=== PATIENT | male | born 1955 | race Caucasian/White ===

== ENCOUNTER 2020-02-15 13:32 | Inpatient (IN) | payer MEDICAID ==
[2020-02-15] VITALS (24 sets, daily range): BP systolic 139–209; BP diastolic 81–125
[~2020-02-15] VITALS: Ht 177.8 cm; Wt 211.8 kg
[~2020-02-15 13:32] MED LIST: ALBUAER3 IN; ALLO100T PO; ASP81EC PO; ATOR20TA50 PO; BACL10TA PO; CAR125T PO; FURO1TAB31 PO; HYDR-4296 PO; HYDR-531 PO; IPRASOL41 IN; ISOS10TA2 PO; LOS25T PO; METF-370 PO; OMEP20TA PO; POTA-220 PO
[2020-02-15] MEDS ORDERED: NITROGLYCERIN 0.4 MG SL TAB SL ONE ×3 (13:42→14:00)
[2020-02-15] MEDS ORDERED: FUROSEMIDE 20 MG/2 ML VIAL ONE (13:42)
[2020-02-15] MEDS ORDERED: FUROSEMIDE 40 MG/4 ML VIAL IV ONE ×2 (13:45→14:00)
[2020-02-15] MEDS ORDERED: methylPREDNISolone SOD SUCC 125 MG/2 ML VL ONE (13:46)
[2020-02-15] MEDS ORDERED: methylPREDNISolone SOD SUCC 125 MG/2 ML VL IV ONE ×2 (14:00)
[2020-02-15] MEDS ORDERED: NITROGLYCERIN 50MG/250ML 250 ML IV ONE (14:15)
[2020-02-15 14:17] LABS: Basophils # (auto) 0 10 ^3/uL (0-0.2); Basophils % (auto) 0.4 % (0.0-2.0); Eosinophils # (auto) 0 10 ^3/uL (0-0.8); Eosinophils % (auto) 0.4 % (0.0-7.0); Hemoglobin 15.8 g/dL (13.5-17.5); Lymphocytes # (auto) 1.1 10 ^3/uL (0.4-5.4); Lymphocytes % (auto) 13.4 % (10.0-50.0); Mean Corpuscular Hemoglobin 28.2 pg (28.0-32.0); Mean Corpuscular Hgb Conc. 32.2 g/dL (32.0-36.0); Mean Corpuscular Volume 87.7 fL (80.0-100.0); Monocytes # (auto) 0.2 10 ^3/uL (0-1.3); Monocytes % (auto) 2.1 % (0.0-12.0); Neutrophils # (auto) 7.1 10 ^3/uL (1.6-8.6); Neutrophils % (auto) 83.7 % (37.0-80.0); Nucleated Red Blood Cells % 0.1 %; Platelet Count (auto) 206 10^3/uL (140-450); Red Blood Cells 5.58 10^6/uL (4.5-5.90); Red Cell Distribution Width 15.4 % (11.8-14.3); White Blood Cell 8.4 10^3/uL (4.4-10.8)
[2020-02-15 14:32] LABS: Urine Bacteria NONE SEEN /hpf (None Seen); Urine Blood TRACE /uL (Negative); Urine Specific Gravity 1.011 (1.001-1.035); Urine WBC 5 /hpf (0 - 3)
[2020-02-15 14:39] LABS: Alanine Aminotransferase 16 U/L (16-61); Albumin 3.5 g/dL (3.4-5.0); Anion Gap 4 (5-15); Aspartate Aminotransferase 15 U/L (15-37); BUN/Creatinine Ratio 15.8; Blood Urea Nitrogen 19 mg/dL (7-18); Carbon Dioxide 31 mmol/L (21-32); Chloride 101 mmol/L (98-107); GFR African American 79 mL/min; GFR Non-African American 65 mL/min; Glucose 157 mg/dL (74-106); Potassium 4.2 mmol/L (3.5-5.1); Sodium 136 mmol/L (136-145)
[2020-02-15 14:44] LABS: Alkaline Phosphatase 107 U/L (45-117); Bilirubin, Total 0.9 mg/dL (0.2-1.0); Total Protein 8.1 g/dL (6.4-8.2)
[2020-02-15] MEDS ORDERED: ACETAMINOPHEN 500 MG TAB PO PRN ×3 (15:15→17:45)
[2020-02-15] MEDS ORDERED: ONDANSETRON HCL 4 MG/2 ML VIAL IV PRN (15:15)
[2020-02-15] MEDS ORDERED: HYDROcodone-ACET 5/325MG TAB PO PRN (15:15)
[2020-02-15] MEDS ORDERED: NIFEdipine ER 30 MG TAB PO ONE (15:15)
[2020-02-15] MEDS ORDERED: NITROGLYCERIN 0.4 MG SL TAB SL PRN (15:15)
[2020-02-15] MEDS ORDERED: MORPHINE SULF INJ 2 MG/ML SYRINGE 1ML IV PRN (15:15)
[2020-02-15] MEDS: MORPHINE SULF INJ 2 MG/ML SYRINGE 1ML IV PRN (16:08)
[2020-02-15 17:19] LABS: CRP High Sensitivity 0.83 mg/dL (< 0.3)
[2020-02-15] MEDS ORDERED: ISOSORBIDE DINITRATE 10 MG TAB PO SCH (18:00)
[2020-02-15] MEDS ORDERED: FUROSEMIDE 40 MG/4 ML VIAL IV SCH (18:00)
[2020-02-15] MEDS ORDERED: CARVEDILOL 12.5 MG TAB PO SCH (18:00)
[2020-02-15] MEDS: HYDROcodone-ACET 10/325MG TAB PO SCH ×2 (19:40→22:00)
[2020-02-15] MEDS: CARVEDILOL 12.5 MG TAB PO SCH (20:36)
[2020-02-15 21:30] LABS: BUN/Creatinine Ratio 16.7; Calcium 8.9 mg/dL (8.5-10.1); Magnesium 2.1 mg/dL (1.6-2.6); Potassium 3.9 mmol/L (3.5-5.1)
[2020-02-15] MEDS: ALBUTEROL SULF HFA 90MCG INH 200DOSE IN SCH (22:00)
[2020-02-15] MEDS: ISOSORBIDE DINITRATE 10 MG TAB PO SCH (22:03)
[2020-02-16] VITALS (91 sets, daily range): BP systolic 114–190; BP diastolic 46–127
[2020-02-16] MEDS: MORPHINE SULF INJ 2 MG/ML SYRINGE 1ML IV PRN ×3 (00:46→15:50)
[2020-02-16] MEDS: NITROGLYCERIN 50MG/250ML 250 ML IV SCH ×3 (01:00→15:06)
[2020-02-16] MEDS ORDERED: NITROGLYCERIN 50MG/250ML 250 ML IV ONE (01:23)
[2020-02-16 04:22] LABS: Basophils # (auto) 0 10 ^3/uL (0-0.2); Eosinophils # (auto) 0 10 ^3/uL (0-0.8); Hematocrit 43.8 % (41.0-53.0); Hemoglobin 14.6 g/dL (13.5-17.5); Lymphocytes # (auto) 0.6 10 ^3/uL (0.4-5.4); Lymphocytes % (auto) 9.8 % (10.0-50.0); Mean Corpuscular Hemoglobin 28.9 pg (28.0-32.0); Mean Corpuscular Hgb Conc. 33.4 g/dL (32.0-36.0); Mean Corpuscular Volume 86.6 fL (80.0-100.0); Monocytes # (auto) 0.1 10 ^3/uL (0-1.3); Neutrophils # (auto) 5.7 10 ^3/uL (1.6-8.6); Neutrophils % (auto) 88.2 % (37.0-80.0); Nucleated Red Blood Cells % 0.2 %; Platelet Count (auto) 175 10^3/uL (140-450); Red Blood Cells 5.05 10^6/uL (4.5-5.90); Red Cell Distribution Width 14.9 % (11.8-14.3); White Blood Cell 6.4 10^3/uL (4.4-10.8)
[2020-02-16 04:44] LABS: Potassium 3.6 mmol/L (3.5-5.1)
[2020-02-16 04:47] LABS: BUN/Creatinine Ratio 17.5
[2020-02-16] MEDS ORDERED: FUROSEMIDE 20 MG/2 ML VIAL ONE (04:48)
[2020-02-16] MEDS: HYDROcodone-ACET 10/325MG TAB PO SCH ×4 (06:00→21:49)
[2020-02-16] MEDS ORDERED: FUROSEMIDE 40 MG/4 ML VIAL IV SCH (06:00)
[2020-02-16] MEDS: ALBUTEROL SULF HFA 90MCG INH 200DOSE IN SCH (06:33)
[2020-02-16] MEDS: CARVEDILOL 12.5 MG TAB PO SCH ×2 (08:36→21:30)
[2020-02-16] MEDS: cefTRIAXone 1GM/50ML D5W 50 ML IV SCH (08:38)
[2020-02-16] MEDS: ZINC SULFATE 220mg CAP or TAB PO SCH (09:55)
[2020-02-16] MEDS: AZITHROMYCIN 500MG/ 250ML 250 ML IV SCH (09:55)
[2020-02-16] MEDS: FAMOTIDINE 20 MG TAB PO SCH (09:56)
[2020-02-16] MEDS: ASCORBIC ACID 1,000 MG TAB PO SCH (09:57)
[2020-02-16] MEDS: CHOLECALCIFEROL (VITD3) 1,000IU=25mCg TAB PO SCH (09:58)
[2020-02-16] MEDS ORDERED: ENOXAPARIN SOD 40 MG/0.4 ML SYRINGE SC SCH (10:00)
[2020-02-16] MEDS ORDERED: PATIENTS OWN MEDICATION (Omeprazole (Gnp Omeprazole) 20 MG) PO SCH (10:00)
[2020-02-16] MEDS ORDERED: NIFEdipine ER 30 MG TAB PO SCH (10:00)
[2020-02-16] MEDS ORDERED: methylPREDNISolone SOD SUCC 40 MG/ML VL IV SCH (10:00)
[2020-02-16] MEDS: ISOSORBIDE DINITRATE 10 MG TAB PO SCH ×2 (10:04→22:13)
[2020-02-16] MEDS ORDERED: POTASSIUM CHL 20 Meq TABLET PO ONE (13:15)
[2020-02-16] MEDS ORDERED: LISINOPRIL 20 MG TAB PO ONE (13:15)
[2020-02-16] MEDS: methylPREDNISolone SOD SUCC 40 MG/ML VL IV SCH ×2 (16:11→21:49)
[2020-02-16] MEDS ORDERED: BACL20TA PO (17:59)
[2020-02-16] MEDS ORDERED: POTA-220 PO (17:59)
[2020-02-16] MEDS ORDERED: ISOS10TA2 PO (17:59)
[2020-02-16] MEDS ORDERED: OMEP20TA PO (17:59)
[2020-02-16] MEDS ORDERED: RIVAROXABAN 20 MG TAB PO ONE (18:00)
[2020-02-16] MEDS: FUROSEMIDE 100 MG/10ML VIAL IV SCH (18:15)
[2020-02-16] MEDS: ALBUTEROL SULF 2.5 MG/0.5ML(0.5%) NEB SOLN NEB SCH (18:52)
[2020-02-16] MEDS: IPRATROPIUM BROM 0.5 MG/2.5ML INH SOL NEB SCH (18:52)
[2020-02-16] MEDS: POTASSIUM CHL 20 Meq TABLET PO SCH (21:49)
[2020-02-16] MEDS ORDERED: DRONEDARONE HCL 400 MG TAB PO SCH (22:00)
[2020-02-16] MEDS: LISINOPRIL 20 MG TAB PO SCH (22:14)
[2020-02-17] VITALS (74 sets, daily range): BP systolic 121–175; BP diastolic 60–99
[2020-02-17] MEDS: methylPREDNISolone SOD SUCC 40 MG/ML VL IV SCH ×4 (04:00→21:29)
[2020-02-17 04:14] LABS: BUN/Creatinine Ratio 19.3; Calcium 8.8 mg/dL (8.5-10.1); Magnesium 2.3 mg/dL (1.6-2.6); Potassium 3.9 mmol/L (3.5-5.1)
[2020-02-17] MEDS: FUROSEMIDE 100 MG/10ML VIAL IV SCH ×2 (06:00→18:20)
[2020-02-17] MEDS: HYDROcodone-ACET 10/325MG TAB PO SCH ×2 (06:00→12:22)
[2020-02-17] MEDS: ALBUTEROL SULF 2.5 MG/0.5ML(0.5%) NEB SOLN NEB SCH ×3 (06:12→19:01)
[2020-02-17] MEDS: IPRATROPIUM BROM 0.5 MG/2.5ML INH SOL NEB SCH ×3 (06:12→19:01)
[2020-02-17] MEDS: NITROGLYCERIN 50MG/250ML 250 ML IV SCH ×2 (08:20→09:52)
[2020-02-17] MEDS: MORPHINE SULF INJ 2 MG/ML SYRINGE 1ML IV PRN (08:29)
[2020-02-17] MEDS: cefTRIAXone 1GM/50ML D5W 50 ML IV SCH (09:50)
[2020-02-17] MEDS: POTASSIUM CHL 20 Meq TABLET PO SCH ×2 (09:52→21:29)
[2020-02-17] MEDS: ISOSORBIDE DINITRATE 10 MG TAB PO SCH ×2 (09:54→21:29)
[2020-02-17] MEDS: LISINOPRIL 20 MG TAB PO SCH ×2 (09:54→21:30)
[2020-02-17] MEDS: NIFEdipine ER 30 MG TAB PO SCH ×2 (09:56→21:29)
[2020-02-17] MEDS: FAMOTIDINE 20 MG TAB PO SCH (09:56)
[2020-02-17] MEDS: ASCORBIC ACID 1,000 MG TAB PO SCH (09:57)
[2020-02-17] MEDS: CARVEDILOL 12.5 MG TAB PO SCH ×2 (09:57→21:28)
[2020-02-17] MEDS ORDERED: ENOXAPARIN SOD 40 MG/0.4 ML SYRINGE SC SCH (10:00)
[2020-02-17] MEDS: CHOLECALCIFEROL (VITD3) 1,000IU=25mCg TAB PO SCH (10:56)
[2020-02-17] MEDS: AZITHROMYCIN 500MG/ 250ML 250 ML IV SCH (10:56)
[2020-02-17] MEDS: ZINC SULFATE 220mg CAP or TAB PO SCH (11:04)
[2020-02-17] MEDS: cloNIDine HCL 0.1 MG TAB PO SCH ×3 (15:29→22:30)
[2020-02-17] MEDS: RIVAROXABAN 20 MG TAB PO SCH (18:19)
[2020-02-17] MEDS: NYSTATIN TOPICAL POWDER 15GM TOP SCH (21:32)
[2020-02-17] MEDS: HYDROcodone-ACET 10/325MG TAB PO PRN (21:36)
[2020-02-18] MEDS: methylPREDNISolone SOD SUCC 40 MG/ML VL IV SCH ×4 (04:43→21:41)
[2020-02-18] MEDS: MORPHINE SULF INJ 2 MG/ML SYRINGE 1ML IV PRN ×4 (05:07→18:12)
[2020-02-18 05:30] VITALS: BP 157/68
[2020-02-18 06:17] LABS: Calcium 8.5 mg/dL (8.5-10.1); Potassium 4.1 mmol/L (3.5-5.1)
[2020-02-18] MEDS: ALBUTEROL SULF 2.5 MG/0.5ML(0.5%) NEB SOLN NEB SCH ×3 (06:29→18:46)
[2020-02-18] MEDS: IPRATROPIUM BROM 0.5 MG/2.5ML INH SOL NEB SCH ×3 (06:30→18:46)
[2020-02-18] MEDS: cloNIDine HCL 0.1 MG TAB PO SCH ×4 (06:43→21:44)
[2020-02-18] MEDS: FUROSEMIDE 100 MG/10ML VIAL IV SCH (06:44)
[2020-02-18] MEDS: FAMOTIDINE 20 MG TAB PO SCH (09:04)
[2020-02-18] MEDS: cefTRIAXone 1GM/50ML D5W 50 ML IV SCH (09:04)
[2020-02-18] MEDS: POTASSIUM CHL 20 Meq TABLET PO SCH (09:04)
[2020-02-18] MEDS: NIFEdipine ER 30 MG TAB PO SCH ×2 (09:04→21:42)
[2020-02-18] MEDS: LISINOPRIL 20 MG TAB PO SCH (09:05)
[2020-02-18] MEDS: ISOSORBIDE DINITRATE 10 MG TAB PO SCH ×2 (09:05→21:44)
[2020-02-18] MEDS: CARVEDILOL 12.5 MG TAB PO SCH ×2 (09:06→21:41)
[2020-02-18] MEDS: ASCORBIC ACID 1,000 MG TAB PO SCH (09:24)
[2020-02-18] MEDS: NYSTATIN TOPICAL POWDER 15GM TOP SCH ×2 (09:24→21:44)
[2020-02-18 13:00] VITALS: BP 155/86
[2020-02-18 14:05] VITALS: BP 155/90
[2020-02-18] MEDS ORDERED: hydrALAZINE HCL 20 MG/ML VL IV PRN (16:00)
[2020-02-18 16:39] VITALS: BP 136/80
[2020-02-18] MEDS: RIVAROXABAN 20 MG TAB PO SCH (17:08)
[2020-02-18] MEDS: HYDROcodone-ACET 10/325MG TAB PO PRN (20:38)
[2020-02-18 22:00] VITALS: BP 158/98
[2020-02-19 02:54] VITALS: BP 158/98
[2020-02-19] MEDS: methylPREDNISolone SOD SUCC 40 MG/ML VL IV SCH ×3 (04:23→16:19)
[2020-02-19 05:00] VITALS: BP 155/88
[2020-02-19] MEDS: cloNIDine HCL 0.1 MG TAB PO SCH ×4 (05:52→22:03)
[2020-02-19 06:30] LABS: Basophils # (auto) 0 10 ^3/uL (0-0.2); Basophils % (auto) 0.1 % (0.0-2.0); Eosinophils # (auto) 0 10 ^3/uL (0-0.8); Hematocrit 47.6 % (41.0-53.0); Hemoglobin 15.4 g/dL (13.5-17.5); Lymphocytes # (auto) 0.4 10 ^3/uL (0.4-5.4); Lymphocytes % (auto) 5.7 % (10.0-50.0); Mean Corpuscular Hgb Conc. 32.3 g/dL (32.0-36.0); Mean Corpuscular Volume 86.6 fL (80.0-100.0); Monocytes # (auto) 0.2 10 ^3/uL (0-1.3); Monocytes % (auto) 2.9 % (0.0-12.0); Neutrophils # (auto) 6.7 10 ^3/uL (1.6-8.6); Neutrophils % (auto) 91.3 % (37.0-80.0); Platelet Count (auto) 209 10^3/uL (140-450); Red Cell Distribution Width 15.4 % (11.8-14.3); White Blood Cell 7.3 10^3/uL (4.4-10.8)
[2020-02-19] MEDS: IPRATROPIUM BROM 0.5 MG/2.5ML INH SOL NEB SCH ×3 (06:32→18:20)
[2020-02-19] MEDS: ALBUTEROL SULF 2.5 MG/0.5ML(0.5%) NEB SOLN NEB SCH ×3 (06:32→18:20)
[2020-02-19 06:52] LABS: BUN/Creatinine Ratio 32.3; Calcium 9.3 mg/dL (8.5-10.1); Potassium 3.6 mmol/L (3.5-5.1)
[2020-02-19] MEDS: cefTRIAXone 1GM/50ML D5W 50 ML IV SCH (08:51)
[2020-02-19] MEDS: NIFEdipine ER 30 MG TAB PO SCH ×2 (08:52→22:04)
[2020-02-19] MEDS: FAMOTIDINE 20 MG TAB PO SCH (08:52)
[2020-02-19] MEDS: ISOSORBIDE DINITRATE 10 MG TAB PO SCH ×2 (08:53→22:05)
[2020-02-19] MEDS: CARVEDILOL 12.5 MG TAB PO SCH ×2 (08:53→22:03)
[2020-02-19] MEDS: MORPHINE SULF INJ 2 MG/ML SYRINGE 1ML IV PRN (08:54)
[2020-02-19 09:00] VITALS: BP 143/90
[2020-02-19] MEDS: NYSTATIN TOPICAL POWDER 15GM TOP SCH ×2 (09:49→22:05)
[2020-02-19] MEDS: HYDROcodone-ACET 10/325MG TAB PO PRN ×2 (12:14→20:41)
[2020-02-19 13:00] VITALS: BP 157/89
[2020-02-19 16:32] VITALS: BP 141/68
[2020-02-19] MEDS: RIVAROXABAN 20 MG TAB PO SCH (17:35)
[2020-02-19] MEDS ORDERED: RIV20T PO (20:42)
[2020-02-19] MEDS ORDERED: PRED20TA2 PO (20:42)
[2020-02-19] MEDS ORDERED: NYS15PW TOP (20:42)
[2020-02-19] MEDS ORDERED: LISI-646 PO (20:42)
[2020-02-19] MEDS ORDERED: ALB5IS NEB (20:42)
[2020-02-19] MEDS ORDERED: OMEP20TA PO (20:42)
[2020-02-19] MEDS ORDERED: ATOR20TA50 PO (20:42)
[2020-02-19] MEDS ORDERED: POTA-220 PO (20:42)
[2020-02-19] MEDS ORDERED: METF-370 PO (20:42)
[2020-02-19] MEDS ORDERED: ALBUAER3 IN (20:42)
[2020-02-19] MEDS ORDERED: HYDR-4296 PO (20:42)
[2020-02-19] MEDS ORDERED: NIFE1TAB31 PO (20:42)
[2020-02-19] MEDS ORDERED: FURO1TAB31 PO (20:42)
[2020-02-19] MEDS ORDERED: ASP81EC PO (20:42)
[2020-02-19] MEDS ORDERED: ISOS10TA2 PO (20:42)
[2020-02-19] MEDS ORDERED: LEVO750T2 PO (20:42)
[2020-02-19] MEDS ORDERED: CAR125T PO (20:42)
[2020-02-19 23:13] VITALS: BP 149/88
[2020-02-20] MEDS: MORPHINE SULF INJ 2 MG/ML SYRINGE 1ML IV PRN (00:56)
[2020-02-20 05:03] VITALS: BP 145/78
[2020-02-20] MEDS: IPRATROPIUM BROM 0.5 MG/2.5ML INH SOL NEB SCH ×2 (05:55→11:11)
[2020-02-20] MEDS: ALBUTEROL SULF 2.5 MG/0.5ML(0.5%) NEB SOLN NEB SCH ×2 (05:55→11:11)
[2020-02-20] MEDS: cloNIDine HCL 0.1 MG TAB PO SCH ×2 (06:05→12:00)
[2020-02-20 06:40] LABS: Basophils # (auto) 0 10 ^3/uL (0-0.2); Eosinophils # (auto) 0 10 ^3/uL (0-0.8); Hematocrit 43.8 % (41.0-53.0); Hemoglobin 14.7 g/dL (13.5-17.5); Lymphocytes # (auto) 0.4 10 ^3/uL (0.4-5.4); Lymphocytes % (auto) 6.3 % (10.0-50.0); Mean Corpuscular Hemoglobin 28.9 pg (28.0-32.0); Mean Corpuscular Hgb Conc. 33.7 g/dL (32.0-36.0); Mean Corpuscular Volume 85.9 fL (80.0-100.0); Monocytes # (auto) 0.4 10 ^3/uL (0-1.3); Monocytes % (auto) 6.4 % (0.0-12.0); Neutrophils # (auto) 5.8 10 ^3/uL (1.6-8.6); Neutrophils % (auto) 87.3 % (37.0-80.0); Nucleated Red Blood Cells % 0.1 %; Platelet Count (auto) 166 10^3/uL (140-450); Red Cell Distribution Width 15.4 % (11.8-14.3); White Blood Cell 6.6 10^3/uL (4.4-10.8)
[2020-02-20 07:00] LABS: Potassium 3.7 mmol/L (3.5-5.1)
[2020-02-20 07:06] LABS: BUN/Creatinine Ratio 38.4; Calcium 9.1 mg/dL (8.5-10.1)
[2020-02-20 09:00] VITALS: BP 143/79
[2020-02-20] MEDS ORDERED: predniSONE 20 MG TAB PO SCH (10:00)
[2020-02-20] MEDS ORDERED: levoFLOXacin 250 MG TAB PO SCH (10:00)
[2020-02-20] MEDS: NYSTATIN TOPICAL POWDER 15GM TOP SCH (10:00)
[2020-02-20] MEDS: CARVEDILOL 12.5 MG TAB PO SCH (10:10)
[2020-02-20] MEDS: ISOSORBIDE DINITRATE 10 MG TAB PO SCH (10:11)
[2020-02-20] MEDS: FAMOTIDINE 20 MG TAB PO SCH (10:13)
[2020-02-20] MEDS: NIFEdipine ER 30 MG TAB PO SCH (10:13)
[2020-02-20] MEDS: HYDROcodone-ACET 10/325MG TAB PO PRN (10:24)
[2020-02-20 13:00] VITALS: BP 139/82
== END 2020-02-20 16:00 | disposition home health service (06) | DRG 133 ==
LOC: ER 13:32 → EDBD 13:32 → TELE 13:33 → ICU WEST 17:08 → TELE-WESTW 02-17 22:30
PROVIDERS: ADMIT Nurse Practitioner Acute Care; ATTEND Hospitalist
PROC: 5A09357 Assistance with Respiratory Ventilation, Less than 24 Consecutive Hours, Continuous Positive Airway Pressure (ICD-10-PCS; principal; 2020-02-16)
PROC: 5A09357 Assistance with Respiratory Ventilation, Less than 24 Consecutive Hours, Continuous Positive Airway Pressure (ICD-10-PCS; 2020-02-17)
PROC: 5A09357 Assistance with Respiratory Ventilation, Less than 24 Consecutive Hours, Continuous Positive Airway Pressure (ICD-10-PCS; 2020-02-18)
PROC: 5A09357 Assistance with Respiratory Ventilation, Less than 24 Consecutive Hours, Continuous Positive Airway Pressure (ICD-10-PCS; 2020-02-19)
PROC: 5A09357 Assistance with Respiratory Ventilation, Less than 24 Consecutive Hours, Continuous Positive Airway Pressure (ICD-10-PCS; 2020-02-20)
DX: J96.21 Acute and chronic respiratory failure with hypoxia (principal); I50.43 Acute on chronic combined systolic (congestive) and diastolic (congestive) heart failure; E11.22 Type 2 diabetes mellitus with diabetic chronic kidney disease; I27.20 Pulmonary hypertension, unspecified; N17.9 Acute kidney failure, unspecified; E66.01 Morbid (severe) obesity due to excess calories; N18.3 Chronic kidney disease, stage 3 (moderate); I48.91 Unspecified atrial fibrillation; I13.0 Hypertensive heart and chronic kidney disease with heart failure and stage 1 through stage 4 chronic kidney disease, or unspecified chronic kidney disease; A49.1 Streptococcal infection, unspecified site; J44.1 Chronic obstructive pulmonary disease with (acute) exacerbation; J96.22 Acute and chronic respiratory failure with hypercapnia; Z20.828 Contact with and (suspected) exposure to other viral communicable diseases; I16.9 Hypertensive crisis, unspecified; G47.33 Obstructive sleep apnea (adult) (pediatric); I16.0 Hypertensive urgency; Z79.01 Long term (current) use of anticoagulants; Z91.19 Patient's noncompliance with other medical treatment and regimen; Z68.44 Body mass index [BMI] 60.0-69.9, adult; Z82.49 Family history of ischemic heart disease and other diseases of the circulatory system; Z91.14 Patient's other noncompliance with medication regimen; I70.0 Atherosclerosis of aorta
CPT/HCPCS: 36415; 36600; 51702; 71045; 80048; 80053; 81001; 82728; 82805; 82962; 83605; 83615; 83735; 83880; 84132; 84443; 84484; 85025; 85379; 86141; 87040; 87081; 87804; 87880; 93005; 93306; 94640; 94660; 96374; 96375; 97163; 99291; G0378; J0696; J2405

== ENCOUNTER 2021-04-11 20:42 | Inpatient (IN) | payer MEDICAID ==
[~2021-04-11] VITALS: Ht 188 cm; Wt 249.4 kg
[~2021-04-11 20:42] MED LIST changes: +ALB5IS NEB; -ASP81EC PO; +ASPI-394 PO; -BACL10TA PO; +BACL20TA PO; +LEVO750T8 PO; +LISI20TA28 PO; -LOS25T PO; +NIFE1TAB31 PO; +NYS15PW TOP; +PRED20TA2 PO; +RIV20T PO
[2021-04-11 22:21] LABS: Basophils # (auto) 0 10 ^3/uL (0-0.2); Eosinophils # (auto) 0 10 ^3/uL (0-0.8); Hemoglobin 7.6 g/dL (13.5-17.5); Lymphocytes # (auto) 0.7 10 ^3/uL (0.4-5.4); Monocytes # (auto) 0.4 10 ^3/uL (0-1.3); Monocytes % (auto) 5.3 % (0.0-12.0); Neutrophils # (auto) 5.6 10 ^3/uL (1.6-8.6); Platelet Count (auto) 220 10^3/uL (140-450); Red Cell Distribution Width 16.7 % (11.8-14.3); White Blood Cell 6.8 10^3/uL (4.4-10.8)
[2021-04-11 22:23] LABS: Basophils % (auto) 0.5 % (0.0-2.0); Eosinophils % (auto) 0.7 % (0.0-7.0); Hematocrit 23.8 % (41.0-53.0); Lymphocytes % (auto) 10.9 % (10.0-50.0); Mean Corpuscular Hemoglobin 23.6 pg (28.0-32.0); Mean Corpuscular Volume 73.7 fL (80.0-100.0); Neutrophils % (auto) 82.6 % (37.0-80.0); Red Blood Cells 3.23 10^6/uL (4.5-5.90)
[2021-04-11 22:41] LABS: INR 1.13 (0.9-1.15); Partial Thromboplastin Time 27.9 sec (23.0-31.2)
[2021-04-11 22:42] LABS: Urine Bacteria NONE SEEN /hpf (None Seen); Urine Blood Negative /uL (Negative); Urine Specific Gravity 1.016 (1.001-1.035); Urine WBC 2 /hpf (0 - 3)
[2021-04-11 22:48] LABS: Albumin 2.9 g/dL (3.4-5.0); Anion Gap 6 (5-15); Blood Urea Nitrogen 20 mg/dL (7-18); Calcium 8.4 mg/dL (8.5-10.1); Carbon Dioxide 27 mmol/L (21-32); Chloride 109 mmol/L (98-107); Glucose 106 mg/dL (74-106); Potassium 4.6 mmol/L (3.5-5.1); Sodium 142 mmol/L (136-145)
[2021-04-11 22:54] LABS: Alanine Aminotransferase 8 U/L (16-61); Alkaline Phosphatase 85 U/L (45-117); Aspartate Aminotransferase 5 U/L (15-37); Bilirubin, Total 0.6 mg/dL (0.2-1.0); GFR African American 70 mL/min; GFR Non-African American 58 mL/min; Total Protein 5.7 g/dL (6.4-8.2)
[2021-04-11] MEDS ORDERED: MORPHINE SULFATE 4 MG/ML SYR/VIAL IV ONE (23:00)
[2021-04-11] MEDS ORDERED: ONDANSETRON HCL 4 MG/2 ML VIAL IV ONE (23:00)
[2021-04-12] VITALS (10 sets, daily range): BP systolic 128–189; BP diastolic 62–94
[2021-04-12] MEDS ORDERED: hydrALAZINE HCL 20 MG/ML VL IV ONE (00:45)
[2021-04-12] MEDS ORDERED: IPRATROPIUM BROM 0.5 MG/2.5ML INH SOL NEB STA ×2 (03:10→06:52)
[2021-04-12] MEDS ORDERED: ALBUTEROL SULF 2.5 MG/0.5ML(0.5%) NEB SOLN NEB STA ×2 (03:10→06:52)
[2021-04-12] MEDS ORDERED: ONDANSETRON HCL 4 MG/2 ML VIAL IV ONE (05:00)
[2021-04-12] MEDS ORDERED: MORPHINE SULFATE 4 MG/ML SYR/VIAL IV ONE ×2 (05:00)
[2021-04-12] MEDS ORDERED: NITROGLYCERIN 0.4 MG SL TAB SL PRN (10:30)
[2021-04-12] MEDS ORDERED: POLYETHYLENE GLYCOL 17 GM PWDR PO ONE (10:30)
[2021-04-12] MEDS ORDERED: MORPHINE SULF INJ 2 MG/ML SYRINGE 1ML IV PRN ×2 (10:30)
[2021-04-12] MEDS ORDERED: ONDANSETRON HCL 4 MG/2 ML VIAL IV PRN (10:30)
[2021-04-12 11:19] LABS: Basophils # (auto) 0.1 10 ^3/uL (0-0.2); Eosinophils # (auto) 0.2 10 ^3/uL (0-0.8); Hemoglobin 8.6 g/dL (13.5-17.5); Lymphocytes # (auto) 1.7 10 ^3/uL (0.4-5.4); Monocytes # (auto) 0.5 10 ^3/uL (0-1.3); Neutrophils # (auto) 4.9 10 ^3/uL (1.6-8.6); White Blood Cell 7.3 10^3/uL (4.4-10.8)
[2021-04-12 11:21] LABS: Basophils % (auto) 0.7 % (0.0-2.0); Eosinophils % (auto) 2.1 % (0.0-7.0); Hematocrit 26.4 % (41.0-53.0); Lymphocytes % (auto) 22.8 % (10.0-50.0); Mean Corpuscular Hemoglobin 24.4 pg (28.0-32.0); Mean Corpuscular Hgb Conc. 32.5 g/dL (32.0-36.0); Mean Corpuscular Volume 75.1 fL (80.0-100.0); Monocytes % (auto) 6.8 % (0.0-12.0); Neutrophils % (auto) 67.6 % (37.0-80.0); Nucleated Red Blood Cells % 0.2 %; Platelet Count (auto) 240 10^3/uL (140-450); Red Blood Cells 3.52 10^6/uL (4.5-5.90)
[2021-04-12] MEDS ORDERED: ALBUTEROL SULF 2.5 MG/0.5ML(0.5%) NEB SOLN NEB PRN (13:15)
[2021-04-12] MEDS ORDERED: levoFLOXacin 500MG 100 ML IV ONE (15:30)
[2021-04-12] MEDS ORDERED: FUROSEMIDE 20 MG/2 ML VIAL IV ONE (15:30)
[2021-04-12] MEDS ORDERED: FERROUS SULFATE 325mg EC TAB PO SCH (18:00)
[2021-04-12] MEDS ORDERED: FER325T PO (18:26)
[2021-04-12] MEDS ORDERED: DOCU100C10 PO (18:26)
[2021-04-12] MEDS ORDERED: LEVO500T31 PO (18:26)
[2021-04-12] MEDS ORDERED: ALBUAER3 IN (18:26)
[2021-04-12] MEDS ORDERED: IPRIH IN (18:27)
[2021-04-12] MEDS ORDERED: DOCUSATE SOD 100 MG CAP PO SCH (22:00)
[2021-04-13] MEDS ORDERED: levoFLOXacin 500MG 100 ML IV SCH (10:00)
== END 2021-04-12 19:24 | disposition home or self-care (01) | DRG 133 ==
LOC: EDBD 20:42 → ER 20:45 → TELE 04-12 10:22 → TELE-EAST 04-12 12:03
PROVIDERS: ADMIT Internal Medicine; ATTEND Internal Medicine
PROC: 30233N1 Transfusion of Nonautologous Red Blood Cells into Peripheral Vein, Percutaneous Approach (ICD-10-PCS; principal; 2021-04-12)
DX: J96.21 Acute and chronic respiratory failure with hypoxia (principal); J18.9 Pneumonia, unspecified organism; I11.0 Hypertensive heart disease with heart failure; I48.91 Unspecified atrial fibrillation; E66.01 Morbid (severe) obesity due to excess calories; J44.0 Chronic obstructive pulmonary disease with (acute) lower respiratory infection; I50.32 Chronic diastolic (congestive) heart failure; E11.9 Type 2 diabetes mellitus without complications; D50.9 Iron deficiency anemia, unspecified; E78.5 Hyperlipidemia, unspecified; I25.10 Atherosclerotic heart disease of native coronary artery without angina pectoris; I87.8 Other specified disorders of veins; K21.9 Gastro-esophageal reflux disease without esophagitis; Z82.49 Family history of ischemic heart disease and other diseases of the circulatory system; Z68.45 Body mass index [BMI] 70 or greater, adult; Z20.822 Contact with and (suspected) exposure to COVID-19; L89.892 Pressure ulcer of other site, stage 2
CPT/HCPCS: 36415; 71045; 80053; 81001; 82607; 83540; 83880; 84484; 85025; 85049; 85610; 85730; 86850; 86900; 86901; 86920; 87426; 93005; 94640; 96374; 96375; G0378; J1956; J2405

== ENCOUNTER 2021-04-15 07:05 | Emergency (ER) | payer MEDICAID ==
[~2021-04-15] VITALS: Ht 170.2 cm; Wt 249.5 kg
[~2021-04-15 07:05] MED LIST changes: -BACL20TA PO; +DOCU100C10 PO; +FER325T PO; -IPRASOL41 IN; +IPRIH IN; +LEVO500T31 PO; -LEVO750T8 PO; -NIFE1TAB31 PO; -NYS15PW TOP; -PRED20TA2 PO
[2021-04-15 08:26] LABS: Urine Bacteria NONE SEEN /hpf (None Seen); Urine Blood 3+ /uL (Negative); Urine Budding Yeast FEW /hpf (None Seen); Urine Hyaline Cast FEW /lpf (0 - 2); Urine Specific Gravity 1.024 (1.001-1.035); Urine WBC 7 /hpf (0 - 3)
[2021-04-15 08:42] LABS: Basophils # (auto) 0.1 10 ^3/uL (0-0.2); Eosinophils # (auto) 0.3 10 ^3/uL (0-0.8); Eosinophils % (auto) 2.3 % (0.0-7.0); Hematocrit 32.6 % (41.0-53.0); Hemoglobin 10.1 g/dL (13.5-17.5); Lymphocytes % (auto) 7.4 % (10.0-50.0); Mean Corpuscular Hemoglobin 23.5 pg (28.0-32.0); Mean Corpuscular Hgb Conc. 31.1 g/dL (32.0-36.0); Mean Corpuscular Volume 75.5 fL (80.0-100.0); Monocytes # (auto) 0.9 10 ^3/uL (0-1.3); Monocytes % (auto) 6.4 % (0.0-12.0); Neutrophils # (auto) 11.2 10 ^3/uL (1.6-8.6); Neutrophils % (auto) 82.9 % (37.0-80.0); Nucleated Red Blood Cells % 0.1 %; Platelet Count (auto) 253 10^3/uL (140-450); Red Blood Cells 4.32 10^6/uL (4.5-5.90); Red Cell Distribution Width 17.3 % (11.8-14.3); White Blood Cell 13.4 10^3/uL (4.4-10.8)
[2021-04-15 08:53] LABS: Albumin 3.1 g/dL (3.4-5.0); Potassium 4.2 mmol/L (3.5-5.1)
[2021-04-15 08:56] LABS: BUN/Creatinine Ratio 14.3; Bilirubin, Total 0.5 mg/dL (0.2-1.0); Total Protein 6.3 g/dL (6.4-8.2)
[2021-04-15] MEDS ORDERED: SODIUM CHLORIDE 0.9% 1,000 ML IV ONE (09:30)
[2021-04-15] MEDS ORDERED: ONDANSETRON HCL 4 MG/2 ML VIAL IV ONE ×2 (09:30→15:45)
[2021-04-15] MEDS: MORPHINE SULFATE 4 MG/ML SYR/VIAL IV PRN ×2 (09:39→21:15)
[2021-04-15 11:13] LABS: INR 1.13 (0.9-1.15); Partial Thromboplastin Time 28.6 sec (23.0-31.2)
[2021-04-15] MEDS ORDERED: cefTRIAXone 1GM/50ML D5W 50 ML IV ONE (11:15)
[2021-04-15 11:48] LABS: Magnesium 2.4 mg/dL (1.6-2.6)
[2021-04-15] MEDS ORDERED: MORPHINE SULF INJ 2 MG/ML SYRINGE 1ML IV ONE (15:45)
[2021-04-16 04:34] VITALS: BP 170/53
[2021-04-16] MEDS ORDERED: cefTRIAXone 1GM/50ML D5W 50 ML IV ONE (06:30)
[2021-04-16 08:23] LABS: Basophils # (auto) 0 10 ^3/uL (0-0.2); Eosinophils # (auto) 0.3 10 ^3/uL (0-0.8); Lymphocytes # (auto) 0.9 10 ^3/uL (0.4-5.4); Monocytes # (auto) 0.9 10 ^3/uL (0-1.3); Nucleated Red Blood Cells % 0.1 %
[2021-04-16 08:24] LABS: Basophils % (auto) 0.4 % (0.0-2.0); Hematocrit 26.5 % (41.0-53.0); Hemoglobin 8.5 g/dL (13.5-17.5); Lymphocytes % (auto) 11.1 % (10.0-50.0); Mean Corpuscular Hemoglobin 24.1 pg (28.0-32.0); Mean Corpuscular Volume 75.4 fL (80.0-100.0); Monocytes % (auto) 10.1 % (0.0-12.0); Neutrophils # (auto) 6.3 10 ^3/uL (1.6-8.6); Neutrophils % (auto) 74.4 % (37.0-80.0); Platelet Count (auto) 225 10^3/uL (140-450); Red Blood Cells 3.52 10^6/uL (4.5-5.90); Red Cell Distribution Width 17.7 % (11.8-14.3); White Blood Cell 8.4 10^3/uL (4.4-10.8)
[2021-04-16] MEDS: MORPHINE SULFATE 4 MG/ML SYR/VIAL IV PRN (10:26)
[2021-04-16] MEDS ORDERED: ONDANSETRON HCL 4 MG/2 ML VIAL IV ONE (10:45)
[2021-04-16 12:20] VITALS: BP 156/43
== END 2021-04-16 13:09 | disposition admitted as inpatient to this hospital (09) ==
LOC: ER 07:05 → EDBD 07:05 → ER 04-16 13:09
DX: R53.1 Weakness (principal); R06.00 Dyspnea, unspecified; D53.9 Nutritional anemia, unspecified; B35.6 Tinea cruris; E46 Unspecified protein-calorie malnutrition; E66.01 Morbid (severe) obesity due to excess calories; I13.0 Hypertensive heart and chronic kidney disease with heart failure and stage 1 through stage 4 chronic kidney disease, or unspecified chronic kidney disease; E11.22 Type 2 diabetes mellitus with diabetic chronic kidney disease; N18.9 Chronic kidney disease, unspecified; I50.9 Heart failure, unspecified; J44.9 Chronic obstructive pulmonary disease, unspecified; I48.91 Unspecified atrial fibrillation; Z68.45 Body mass index [BMI] 70 or greater, adult; Z90.89 Acquired absence of other organs; Z20.822 Contact with and (suspected) exposure to COVID-19
CPT/HCPCS: 36415; 71045; 80053; 81001; 83690; 83735; 83880; 84443; 84484; 85025; 85049; 85610; 85730; 87040; 87426; 93005; 96361; 96365; 96366; 96375; 96376; 99285; J0696; J2270; J2405; J7030